=== PATIENT | male | born 1990 | race Caucasian/White ===

== ENCOUNTER 2019-08-30 09:56 | Emergency (ER) | payer OTHER ==
[~2019-08-30] VITALS: Ht 185.4 cm; Wt 95.3 kg
[2019-08-30] MEDS ORDERED: PROMETH-CODEIN 65 ML PO (12:42)
[2019-08-30] MEDS ORDERED: MUCINEX1200 MG PO (12:42)
== END 2019-08-30 15:14 | disposition home or self-care (01) ==
LOC: ER 09:56
DX: B34.9 Viral infection, unspecified (principal)

== ENCOUNTER 2020-01-27 18:04 | Emergency (ER) | payer OTHER ==
[~2020-01-27 18:04] MED LIST: MUCINEX1200 MG PO; PROMETH-CODEIN 65 ML PO
== END 2020-01-27 18:50 | disposition home or self-care (01) ==
LOC: ER 18:04
DX: S31.020A Laceration with foreign body of lower back and pelvis without penetration into retroperitoneum, initial encounter (principal); W45.8XXA Other foreign body or object entering through skin, initial encounter; Y93.89 Activity, other specified; Y92.89 Other specified places as the place of occurrence of the external cause; Y99.8 Other external cause status

== ENCOUNTER 2020-06-29 12:15 | Emergency (ER) | payer OTHER ==
[~2020-06-29] VITALS: Ht 185.4 cm; Wt 90.7 kg
[2020-06-29] MEDS ORDERED: ASACOL HD800 MG PO (22:37)
[2020-06-29] MEDS ORDERED: LEVSIN/SL0.125 MG SL (22:37)
[2020-06-29] MEDS ORDERED: CIPRO500 MG PO (22:37)
[2020-06-29] MEDS ORDERED: INTESTINEX680 M1 PO (22:37)
[2020-06-29] MEDS ORDERED: PEPCID AC20 MG PO (22:37)
[2020-06-29] MEDS ORDERED: FLAGYL500MG PO (22:37)
== END 2020-06-29 22:47 | disposition home or self-care (01) ==
LOC: ER 12:15
DX: K52.89 Other specified noninfective gastroenteritis and colitis (principal); K62.5 Hemorrhage of anus and rectum

== ENCOUNTER 2021-03-02 11:00 | Emergency (ER) | payer OTHER ==
[~2021-03-02] VITALS: Ht 185.4 cm; Wt 95.3 kg
[~2021-03-02 11:00] MED LIST changes: +ASACOL HD800 MG PO; +CIPRO500 MG PO; +FLAGYL500MG PO; +INTESTINEX680 M1 PO; +LEVSIN/SL0.125 MG SL; +PEPCID AC20 MG PO
[2021-03-02] MEDS ORDERED: CYCLOBENZAPRINE10 MG PO (15:11)
[2021-03-02] MEDS ORDERED: KETO10TA2 PO (15:11)
[2021-03-02] MEDS ORDERED: MEDROLPACK PO (15:11)
== END 2021-03-02 16:05 | disposition home or self-care (01) ==
LOC: ER 11:00
DX: M26.69 Other specified disorders of temporomandibular joint (principal)

== ENCOUNTER 2022-12-12 21:36 | Emergency (ER) | payer OTHER ==
[~2022-12-12] VITALS: Ht 185.4 cm; Wt 104.3 kg
[~2022-12-12 21:36] MED LIST changes: +CYCLOBENZAPRINE10 MG PO; +KETO10TA2 PO; +MEDROLPACK PO
[2022-12-13] MEDS ORDERED: DICLOFENAC SODI50 MG PO (12:18)
[2022-12-13] MEDS ORDERED: TRAM1TAB98 PO (12:18)
== END 2022-12-13 02:18 | disposition home or self-care (01) ==
LOC: ER 21:36
DX: S83.8X2A Sprain of other specified parts of left knee, initial encounter (principal)

== ENCOUNTER 2022-12-13 09:07 | Emergency (ER) | payer OTHER ==
[~2022-12-13] VITALS: Ht 185.4 cm; Wt 90.7 kg
[2022-12-13] MEDS ORDERED: TRAM1TAB98 PO (12:18)
[2022-12-13] MEDS ORDERED: DICLOFENAC SODI50 MG PO (12:18)
== END 2022-12-13 12:39 | disposition home or self-care (01) ==
LOC: ER 09:07
DX: M25.562 Pain in left knee (principal); M25.062 Hemarthrosis, left knee